=== PATIENT | male | born 1955 | race Caucasian/White ===

== ENCOUNTER 2020-06-14 11:52 | Emergency (ER) | payer BC ==
--- NOTE | 2020-06-14 12:40 | EDM.PDOC ---
ED HPI GENERAL MEDICAL PROBLEM - General Chief Complaint: Respiratory Problem Stated Complaint: COVID +/SOB Time Seen by Provider: 06/14/20 11:56 Source of Information: Reports: Patient History Limitations: Reports: No Limitations - History of Present Illness INITIAL COMMENTS - FREE TEXT/NARRATIVE: Patient is a 65-year-old male presenting to the emergency department with compla ints of 11-day history of fatigue, subjective fever, cough, body aches, weakness and congestion. Patient had verbalized to the triage nurse that he was short of breath, however he denied this to me on numerous occasions. He denies shortness of breath at rest or with exertion. He has not checked his temperature at home but states that he is felt warm. He feels that the fatigue is worsening. He did have one episode of diarrhea a few days back but none since that time. He has had no nausea and vomiting. He denies any chronic underlying medical conditions. He currently takes only a fish oil daily for medications. He has been using cough syrup and nasal spray to treat his symptoms at home with some relief. Generalized Pain Score (Numeric/FACES): 5 - Related Data Allergies Allergy/AdvReac Type Severity Reaction Status Date / Time No Known Allergies Allergy Verified 06/14/20 12:04 Home Meds: Home Meds Fish Oil/[place]-3 Fatty Acids [Fish Oil 1,000 MG] 1 gm PO DAILY 06/14/20 [History] dexAMETHasone [Dexamethasone] 6 mg PO BID 4 Days #8 tab 06/14/20 [Rx] Past Medical History - Past Health History Medical/Surgical History: Denies Medical/Surgical History - Infectious Disease History Infectious Disease History: Reports: None Social & Family History - Tobacco Use Tobacco Use Status *Q: Current Some Day Tobacco User Years of Tobacco use: 30 Packs/Tins Daily: 0.1 - Caffeine Use Caffeine Use: Reports: Coffee - Recreational Drug Use Recreational Drug Use: No ED ROS GENERAL - Review of Systems Review Of Systems: See Below Constitutional: Reports: Fever, Chills, Weakness, Fatigue HEENT: Reports: Sinus Problem Respiratory: Reports: Cough. Denies: Shortness of Breath, Wheezing Cardiovascular: Reports: No Symptoms. Denies: Chest Pain, Dyspnea on Exertion Endocrine: Reports: No Symptoms GI/Abdominal: Reports: Diarrhea. Denies: Abdominal Pain, Nausea, Vomiting : Reports: No Symptoms Musculoskeletal: Reports: Other (Generalized body aches) Skin: Reports: No Symptoms Neurological: Reports: No Symptoms Psychiatric: Reports: No Symptoms Hematologic/Lymphatic: Reports: No Symptoms Immunologic: Reports: No Symptoms ED EXAM, GENERAL - Physical Exam Exam: See Below General Appearance: Alert, WD/WN, No Apparent Distress Neck: Normal Inspection, Supple, Non-Tender, Full Range of Motion Respiratory/Chest: No Respiratory Distress, Lungs Clear, Normal Breath Sounds, No Accessory Muscle Use, Chest Non-Tender Cardiovascular: Normal Peripheral Pulses, Regular Rate, Rhythm, No Edema, No Gallop, No JVD, No Murmur, No Rub GI/Abdominal: Normal Bowel Sounds, Soft, Non-Tender, No Organomegaly, No Distention, No Abnormal Bruit, No Mass Neurological: Alert, Oriented, CN II-XII Intact, Normal Cognition, Normal Gait, Normal Reflexes, No Motor/Sensory Deficits Psychiatric: Normal Affect, Normal Mood Skin Exam: Warm, Dry, Intact, Normal Color, No Rash #1 Interpretation EKG Date: 06/14/20 Time: 12:18 Rhythm: NSR Rate (Beats/Min): 96 [place]: LAD-Left [place] Deviation P-Wave: Present QRS: Normal ST-T: Normal QT: Normal Course - Vital Signs Last Recorded V/S: Last Vital Signs Temp 99.1 F 06/14/20 12:01 Pulse 90 06/14/20 13:15 Resp 18 06/14/20 12:01 BP 134/75 06/14/20 13:15 Pulse Ox 94 L 06/14/20 13:15 - Orders/Labs/Meds Orders: Active Orders 24 hr Category Date Time Status Chest 1V Frontal [CR] Stat Exams 06/14/20 12:11 Taken CORONAVIRUS COVID-19 PCR PHL Stat Lab 06/14/20 13:52 Received Labs: Laboratory Tests 06/14/20 06/14/20 06/14/20 Range/Units 12:29 12:29 12:29 WBC 6.40 (4.23-9.07) K/mm3 RBC 5.18 (4.63-6.08) M/mm3 Hgb 14.2 (13.7-17.5) gm/dl Hct 42.8 (40.1-51.0) % MCV 82.6 (79.0-92.2) fl MCH 27.4 (25.7-32.2) pg MCHC 33.2 (32.2-35.5) g/dl RDW Std Deviation 40.7 (35.1-43.9) fL Plt Count 161 L (163-337) K/mm3 MPV 10.1 (9.4-12.3) fl Neut % (Auto) 82.3 H (34.0-67.9) % Lymph % (Auto) 11.9 L (21.8-53.1) % [place] % (Auto) 5.3 (5.3-12.2) % Eos % (Auto) 0 L (0.8-7.0) Baso % (Auto) 0.2 (0.1-1.2) % Neut # (Auto) 5.27 (1.78-5.38) K/mm3 Lymph # (Auto) 0.76 L (1.32-3.57) K/mm3 [place] # (Auto) 0.34 (0.30-0.82) K/mm3 Eos # (Auto) 0.00 L (0.04-0.54) K/mm3 Baso # (Auto) 0.01 (0.01-0.08) K/mm3 D-Dimer, Quantitative 0.81 H (0.19-0.50) mg/L Sodium 131 L (136-145) mEq/L Potassium 3.5 (3.5-5.1) mEq/L Chloride 95 L (98-107) mEq/L Carbon Dioxide 27 (21-32) mEq/L Anion Gap 12.5 (5-15) BUN 17 (7-18) mg/dL Creatinine 1.2 (0.7-1.3) mg/dL Est Cr Clr Drug Dosing 58.91 mL/min Estimated GFR (MDRD) > 60 (>60) mL/min BUN/Creatinine Ratio 14.2 (14-18) Glucose 133 H (80-115) mg/dL Calcium 8.3 L (8.5-10.1) mg/dL Ferritin (26-388) ng/ml Total Bilirubin 0.8 (0.2-1.0) mg/dL AST 23 (15-37) U/L ALT 21 (16-63) U/L Alkaline Phosphatase 60 (46-116) U/L Lactate Dehydrogenase 231 H (85-227) U/L Troponin I < 0.017 (0.00-0.056) ng/mL C-Reactive Protein 12.8 H* (<1.0) mg/dL NT-Pro-B Natriuret Pep (0-125) pg/mL Total Protein 6.5 (6.4-8.2) g/dl Albumin 2.8 L (3.4-5.0) g/dl Globulin 3.7 gm/dL Albumin/Globulin Ratio 0.8 L (1-2) 06/14/20 06/14/20 Range/Units 12:29 12:29 WBC (4.23-9.07) K/mm3 RBC (4.63-6.08) M/mm3 Hgb (13.7-17.5) gm/dl Hct (40.1-51.0) % MCV (79.0-92.2) fl MCH (25.7-32.2) pg MCHC (32.2-35.5) g/dl RDW Std Deviation (35.1-43.9) fL Plt Count (163-337) K/mm3 MPV (9.4-12.3) fl Neut % (Auto) (34.0-67.9) % Lymph % (Auto) (21.8-53.1) % [place] % (Auto) (5.3-12.2) % Eos % (Auto) (0.8-7.0) Baso % (Auto) (0.1-1.2) % Neut # (Auto) (1.78-5.38) K/mm3 Lymph # (Auto) (1.32-3.57) K/mm3 [place] # (Auto) (0.30-0.82) K/mm3 Eos # (Auto) (0.04-0.54) K/mm3 Baso # (Auto) (0.01-0.08) K/mm3 D-Dimer, Quantitative (0.19-0.50) mg/L Sodium (136-145) mEq/L Potassium (3.5-5.1) mEq/L Chloride (98-107) mEq/L Carbon Dioxide (21-32) mEq/L Anion Gap (5-15) BUN (7-18) mg/dL Creatinine (0.7-1.3) mg/dL Est Cr Clr Drug Dosing mL/min Estimated GFR (MDRD) (>60) mL/min BUN/Creatinine Ratio (14-18) Glucose (80-115) mg/dL Calcium (8.5-10.1) mg/dL Ferritin 838 H (26-388) ng/ml Total Bilirubin (0.2-1.0) mg/dL AST (15-37) U/L ALT (16-63) U/L Alkaline Phosphatase (46-116) U/L Lactate Dehydrogenase (85-227) U/L Troponin I (0.00-0.056) ng/mL C-Reactive Protein (<1.0) mg/dL NT-Pro-B Natriuret Pep 52 (0-125) pg/mL Total Protein (6.4-8.2) g/dl Albumin (3.4-5.0) g/dl Globulin gm/dL Albumin/Globulin Ratio (1-2) - Re-Assessments/Exams Free Text/Narrative Re-Assessment/Exam: 06/14/20 1325 Chest xray showed bilateral lower lobe patchy infiltrates consistent with viral pneumonia. Hematology showed a D-dimer minimally elevated 0.81, sodium 131, chloride 95, ferritin 838, LDH 231, CRP 12.8. These were all findings consistent with COVID-19 with the exception of the slightly low sodium. Troponin was negative. EKG showed no acute ischemia. Patient had maintain oxygen saturation of 92 to 95% on room air throughout his stay in the ER. We will discharge him home with instructions to purchase a pulse oximeter and a prescription for dexamethasone. Return precautions discussed. I also called and spoke with his , Ralph and updated on plan. Patient and are both in agreement with the plan of care. Discharge instructions as documented. Departure - Departure Time of Disposition: 13:26 Disposition: Home, Self-Care 01 Condition: Good Clinical Impression: Viral respiratory illness - Discharge Information *PRESCRIPTION DRUG MONITORING PROGRAM REVIEWED*: No *COPY OF PRESCRIPTION DRUG MONITORING REPORT IN PATIENT FRANCISCA: No Prescriptions: dexAMETHasone [Dexamethasone] 6 mg PO BID 4 Days #8 tab Instructions: Viral Illness, Adult Referrals: PCP,None [Primary Care Provider] - Forms: ED Department Discharge Additional Instructions: You were seen in the emergency department today for an 11-day history of cough, fever, body aches, weakness, and fatigue. He work-up included chest x-ray, EKG, and blood work. Chest x-ray does show that you have a diffuse bilateral viral pneumonia. A number of your inflammatory markers in your blood are elevated which would be consistent with a diagnosis of COVID-19. The official Covid test results generally take 24 to 72 hours. You will be notified when these are completed, however at this point would like you to operate on the assumption that you do have COVID-19. Recommend that you rest. You can use [id number] Tylenol and ibuprofen as needed for discomfort. You may continue to use the cough syrup that you have been using previously. A prescription for dexamethasone has been sent to [facility]. This is a steroid which should help reduce the inflammation. I would also like you to purchase a home pulse oximeter. Monitor your oxygen saturations intermittently throughout the day. If you are maintaining an oxygen saturation below 90%, this indicates that you are hypoxic and you need to return to the emergency department for reevaluation. If you experience any other new or worsening symptoms of concern, please do not hesitate to return to the ER for reevaluation. Sepsis Event Note (ED) - Evaluation Sepsis Screening Result: No Definite Risk - Focused Exam Vital Signs: Vital Signs Temp Pulse Resp BP Pulse Ox 06/14/20 13:15 90 134/75 94 L 06/14/20 12:30 93 141/82 H 93 L 06/14/20 12:01 99.1 F 99 18 153/85 H 91 L - My Orders Last 24 Hours: My Active Orders 06/14/20 12:11 Chest 1V Frontal [CR] Stat 06/14/20 13:52 CORONAVIRUS COVID-19 PCR PHL Stat - Assessment/Plan Last 24 Hours: My Active Orders 06/14/20 12:11 Chest 1V Frontal [CR] Stat 06/14/20 13:52 CORONAVIRUS COVID-19 PCR PHL Stat
== END 2020-06-14 13:55 | disposition home or self-care (01) ==
LOC: JD.ED 11:52
DX: U07.1 COVID-19 (principal); J98.8 Other specified respiratory disorders; B97.89 Other viral agents as the cause of diseases classified elsewhere; F17.210 Nicotine dependence, cigarettes, uncomplicated
CPT/HCPCS: 36415; 71045; 80053; 82728; 83615; 83880; 84484; 85025; 85379; 86140; 93005; 93010; 99283; 99285-25; U0002